=== PATIENT | male | born 1995 | race African-American/Black ===

== ENCOUNTER 2024-07-31 14:55 | Emergency (ER) | payer OTHER, MEDICAID ==
[~2024-07-31] VITALS: Ht 190.5 cm; Wt 80.0 kg
[2024-07-31] MEDS: MORPHINE SULFATE 4 MG/ML INJ (FOR IV/IM USE) IV ONE ×2 (15:44→17:49)
[2024-07-31 17:11] VITALS: O2SAT 100
[2024-07-31 17:45] VITALS: O2SAT 98
[2024-07-31] MEDS: PROPOFOL 200MG/20ML VIAL IV PRN (17:51)
[2024-07-31] MEDS: ONDANSETRON HCL 4MG/2ML INJ IV ONE (17:51)
[2024-07-31] MEDS ORDERED: HYDR-4001 MT (18:25)
[2024-07-31] MEDS ORDERED: IBUP-2030 MT (18:25)
[2024-07-31 18:49] VITALS: BP 124/89; PULSE 65; RESP 13; TEMP 37.1; O2SAT 100
[2024-07-31] MEDS: KETOROLAC 30MG/ML VIAL IV ONE (18:49)
[2024-07-31] MEDS: HYDROCODONE/ACETAMINOPHEN 5/325MG TABLET PO ONE (18:49)
== END 2024-07-31 19:18 | disposition home or self-care (01) ==
LOC: ER 14:55
DX: S93.05XA Dislocation of left ankle joint, initial encounter (principal); Z79.899 Other long term (current) drug therapy; X58.XXXA Exposure to other specified factors, initial encounter; Y93.67 Activity, basketball; Y92.89 Other specified places as the place of occurrence of the external cause; Y99.8 Other external cause status
CPT/HCPCS: 73600; 73610; 73630; 94070; 27840; 96374; 96375; 96376; 99152; 99285; J1885; J2704; J2270; Z7610 ×6; A6449; A4606